=== PATIENT | female | born 2005 | race Caucasian/White ===

== ENCOUNTER 2024-05-24 20:38 | Emergency (ER) | payer OTHER ==
[2024-05-24] MEDS ORDERED: Acetaminophen 500 MG TAB ONE (21:49)
== END 2024-05-24 22:51 | disposition home or self-care (01) ==
LOC: CSHERS 20:38
DX: R51.9 Headache, unspecified (principal); Z55.6 Problems related to health literacy
CPT/HCPCS: 70450; 72125